=== PATIENT | male | born 1995 | race Two or more races ===

== ENCOUNTER → 2024-02-21 | Day surgery (SDC) | payer MEDICAID ==
[2024-02-19 14:26] LABS: Urine Bacteria None Seen /hpf (None Seen)
[2024-02-19 14:44] LABS: Basophils # (auto) 0 10 ^3/uL (0-0.2); Basophils % (auto) 0.1 % (0.0-2.0); Eosinophils # (auto) 0.1 10 ^3/uL (0-0.8); Eosinophils % (auto) 1.3 % (0.0-7.0); Hematocrit 43.2 % (41.0-53.0); Hemoglobin 14.6 g/dL (13.5-17.5); Lymphocytes # (auto) 2.3 10 ^3/uL (0.4-5.4); Lymphocytes % (auto) 23.3 % (10.0-50.0); Mean Corpuscular Hemoglobin 29.4 pg (28.0-32.0); Mean Corpuscular Hgb Conc. 33.7 g/dL (32.0-36.0); Mean Corpuscular Volume 87.1 fL (80.0-100.0); Monocytes # (auto) 0.5 10 ^3/uL (0-1.3); Monocytes % (auto) 4.8 % (0.0-12.0); Neutrophils # (auto) 6.9 10 ^3/uL (1.6-8.6); Neutrophils % (auto) 70.5 % (37.0-80.0); Red Blood Cells 4.96 10^6/uL (4.5-5.90); Red Cell Distribution Width 13.1 % (11.8-14.3); White Blood Cell 9.8 10^3/uL (4.4-10.8)
[2024-02-19 14:50] LABS: INR 1.02 (0.9-1.15); Partial Thromboplastin Time 27.6 SEC (24.5-34.5); Prothrombin Time 10.8 sec (9.3-11.8)
[2024-02-19 14:56] LABS: Urine Blood Negative /uL (Negative); Urine Clarity Clear (Clear); Urine Color Light-Yellow (Yellow); Urine Protein, UAD Negative (Negative); Urine Specific Gravity 1.013 (1.001-1.035); Urine Urobilinogen Normal (Negative); Urine WBC 1 /hpf (0 - 3)
[2024-02-19 15:13] LABS: Alanine Aminotransferase 41 U/L (7-40); Albumin 4.9 g/dL (3.2-4.8); Alkaline Phosphatase 81 U/L (46-116); Anion Gap 7 (5-15); Aspartate Aminotransferase 17 U/L (13-40); BUN/Creatinine Ratio 15.3 (10.0-20.0); Blood Urea Nitrogen 11 mg/dL (9-23); Calcium 10.2 mg/dL (8.5-10.1); Carbon Dioxide 27 mmol/L (20-30); Chloride 105 mmol/L (98-107); Glucose 95 mg/dL (74-106); Potassium 4.2 mmol/L (3.5-5.1); Sodium 139 mmol/L (136-145)
[2024-02-19 15:14] LABS: Bilirubin, Total 0.6 mg/dL (0.2-1.0); Total Protein 7.7 g/dL (5.7-8.2)
[~2024-02-21] VITALS: Ht 175.3 cm; Wt 87.1 kg
[~2024-02-21] MED LIST: DexAMETHasone SOD PHOS 10MG/1ML VIAL INJ ONE; FINA5TAB4 PO; FLUMAZENIL 0.1 MG/ML INJ 10ML MDV IV PRN; HYDROmorphone HCL 2 MG/ML VL/or syr IV PRN; KETAMINE 50mg/ML 1ml syringe ONE; KETOROLAC TROMETH 30 MG/ML 1ML VIAL ONE; LABETALOL HCL 5 MG/ML 4ML SYRINGE IV PRN; LABETALOL HCL 5 MG/ML ML 20ML VIAL IV PRN; LIDOCAINE 1% INJ PF 5ML AMP ONE; LIDOCAINE W/ EPINEPHRINE 1% 20ML VIAL ONE; MIN25T PO; NALOXONE HCL 0.4 MG/ML VIAL IV PRN; ONDANSETRON HCL 4 MG/2 ML VIAL IV PRN; ONDANSETRON HCL 4 MG/2 ML VIAL ONE; PROPOFOL 10 MG/ML 20 ML IV ONE; ceFAZolin 2 GM/D5W50ml 50 ML IV ONE; ePHEDrine SULFATE 50 MG/ML AMP IV PRN; fentaNYL CITRATE 100 MCG/2 ML VL IV PRN; fentaNYL CITRATE 100 MCG/2 ML VL ONE; hydrALAZINE HCL 20 MG/ML VL IV PRN
[2024-02-21 10:43] VITALS: TEMP 97.3; O2SAT 99
[2024-02-21 11:28] VITALS: BP 105/63; PULSE 70; RESP 16; O2SAT 97
== END | disposition home or self-care (01) ==
LOC: SUR 06:15
PROVIDERS: ATTEND Surgery
DX: D17.22 Benign lipomatous neoplasm of skin and subcutaneous tissue of left arm (principal); D17.23 Benign lipomatous neoplasm of skin and subcutaneous tissue of right leg; D17.24 Benign lipomatous neoplasm of skin and subcutaneous tissue of left leg; E66.3 Overweight; Z68.28 Body mass index [BMI] 28.0-28.9, adult; Z79.899 Other long term (current) drug therapy
CPT/HCPCS: 24071; 27327; 27337; 36415; 80053; 81001; 84702; 85025; 85610; 85730; 88305; J0690; J1100; J1885; J2405; J2704; J3490